=== PATIENT | male | born 1970 | race Caucasian/White ===

== ENCOUNTER 2017-03-18 10:56 | Emergency (ER) | payer SELFPAY ==
[~2017-03-18] VITALS: Ht 160 cm; Wt 88.0 kg
[2017-03-18 15:03] VITALS: BP 128/81
== END 2017-03-18 15:04 | disposition home or self-care (01) ==
LOC: ER 12:53
DX: S69.82XA Other specified injuries of left wrist, hand and finger(s), initial encounter (principal); W45.8XXA Other foreign body or object entering through skin, initial encounter; Y93.89 Activity, other specified; Y92.89 Other specified places as the place of occurrence of the external cause; Y99.8 Other external cause status
CPT/HCPCS: 99281

== ENCOUNTER → 2024-10-28 | Day surgery (SDC) | payer MEDICAID ==
[~2024-10-28] VITALS: Ht 167.6 cm; Wt 73.5 kg
[~2024-10-28] MED LIST: ACETAMINOPHEN 1,000MG/100ML PREMIX IV PRN; ACETAMINOPHEN 1000MG/100ML 100 ML IV PRN; BUPIVACAINE HCL/PF 0.5% (5MG/ML) 10ML ONE; CEFAZOLIN SODIUM 1000MG/VIAL ONE; FAMOTIDINE 20MG/2ML VIAL IV ONE; FAMOTIDINE 20MG/2ML VIAL IV PRN; FENTANYL CITRATE/PF 50MCG/ML 2ML VIAL ONE; HYDRALAZINE 20MG/ML VIAL IV PRN; LABETALOL 5MG/ML 4ML INJ IV PRN; LACTATED RINGERS 1,000 ML IV SCH; LORAZEPAM 2MG/ML UD SYRINGE IV PRN; MEPERIDINE HCL/PF 25MG/ML CPJ IV PRN; MIDAZOLAM HCL 2 MG/2 ML VIAL ONE; ONDANSETRON HCL 4MG/2ML INJ IV PRN; ONDANSETRON HCL 4MG/2ML INJ ONE; PROPOFOL 200MG/20ML VIAL IV ONE; SKIN ADHESIVE 0.7 GM EA TOP ONE
[2024-10-28] MEDS: HYDROMORPHONE HCL/PF 1MG/ML INJ IV PRN (13:02)
[2024-10-28 13:16] VITALS: BP 130/90; PULSE 75; RESP 20
== END | disposition home or self-care (01) ==
LOC: OR 07:25
PROVIDERS: ATTEND Surgery
DX: K40.90 Unilateral inguinal hernia, without obstruction or gangrene, not specified as recurrent (principal); Z79.899 Other long term (current) drug therapy; Z98.890 Other specified postprocedural states
CPT/HCPCS: 49505; J3010; J0665; J0690; J1308; J2250; J2405; J2704; J1171; J7030; C1781